=== PATIENT | male | born 1995 | race Two or more races ===

== ENCOUNTER 2021-06-27 12:49 | Observation (INO) | payer MEDICAID, OTHER ==
[~2021-06-27] VITALS: Ht 175.3 cm; Wt 76.5 kg
[2021-06-27] MEDS ORDERED: NALOXONE 1 MG/ML, 2ML ONE (13:07)
[2021-06-27] MEDS ORDERED: NALOXONE 0.4 MG/ML, 1ML ONE ×2 (13:12→14:00)
[2021-06-27] MEDS ORDERED: NALOXONE 0.4 MG/ML, 1ML IVPush ONE ×2 (13:30→14:30)
--- NOTE | 2021-06-27 13:59 | NUR ---
BIBA FOR SEVERE ONSET OF DIFFUSE ABD PAIN WITH NAUSEA AND VOMITING AFTER TAKING A "PILL" PER EMS. PT PRESENTS OBTUNDED BUT ROUSABLE. X1 DOSE OF 0.4 NARCAN WITH SLIGHT INCREASE IN ALERTNESS. JOSÉ SOW TO BEDSIDE FOR EVALUATION.
[2021-06-27] MEDS ORDERED: PLEASE ENTER ALLERGIES MC SCH (14:00)
[2021-06-27 14:02] LABS: BASOPHILS % (AUTO) 0 % (0-1); EOSINOPHILS % (AUTO) 1 % (1-7); LYMPHOCYTES % (AUTO) 12 % (22-44); MEAN CORPUSCULAR HEMOGLOBIN 30.2 pg (27.5-34.5); MEAN CORPUSCULAR HGB CONC 33.4 g/dL (33.2-36.2); MEAN PLATELET VOLUME 7.2 fL (7.4-10.4); MONOCYTES % (AUTO) 6 % (2-9); NEUTROPHILS % (AUTO) 81 % (42-75); PLATELET COUNT 272 x10^3/uL (130-400); RED CELL DISTRIBUTION WIDTH 14.1 % (9.4-14.8)
[2021-06-27 14:10] LABS: ALANINE AMINOTRANSFERASE 34 U/L (12-78); ALBUMIN 3.9 g/dL (3.4-5.0); ANION GAP 3 mmol/L (5-15); CALCIUM 8.8 mg/dL (8.5-10.1); CHLORIDE 109 mmol/L (98-107); CREATININE 0.73 mg/dL (0.7-1.3)
[2021-06-27 14:12] LABS: ALKALINE PHOSPHATASE 78 U/L (45-117); BILIRUBIN,TOTAL 0.6 mg/dL (0.2-1.0); SALICYLATE LEVEL < 1.7 mg/dL (2.8-20.0)
--- NOTE | 2021-06-27 15:00 | NUR ---
pt asleep with even and unlabored respirations. [email or web address]
[2021-06-27] MEDS ORDERED: NEOMYCIN SULFATE 500 MG TABLET PO ONE (15:42)
--- NOTE | 2021-06-27 15:42 | NUR ---
PT ASLEEP WITH EVEN AND UNLABORED RESPIRATIONS. IS BRIEFLY AROUSABLE BEFORE FALLING BACK TO SLEEP. PT UNABLE TO GIVE UA AT THIS TIME. DR. COLE NOTIFED AND STATED SHE WILL COME SEE PT.
[2021-06-27] MEDS ORDERED: LACTULOSE 20 GM/30 ML UDC PO STA (15:44)
--- NOTE | 2021-06-27 16:10 | NUR ---
YELLOW MED REQUEST SLIP SENT DOWN TO PHARM. SEE EMAR.
[2021-06-27 16:32] LABS: AMPHETAMINE SCREEN, URINE Positive (Negative); BARBITURATE SCREEN, URINE Negative (Negative); BENZODIAZEPINE SCREEN, URINE Negative (Negative); CANNABINOID SCREEN, URINE Negative (Negative); COCAINE SCREEN, URINE Positive (Negative); METHADONE SCREEN, URINE Negative (Negative); OPIATE SCREEN, URINE Negative (Negative)
[2021-06-27] MEDS ORDERED: POTASSIUM CHLORIDE 20 MEQ TAB.ER.PRT PO ONE (17:00)
--- NOTE | 2021-06-27 17:26 | NUR ---
MOTHER AT BEDSIDE. THE RN ATTEMPTED TO HAVE PT SIP WATER BEFORE MEDICATION ADMISTRATION, PT TO OBTUNDED TO DRINK. DR. COLE NOTIFED. HOLD OFF ON PO MEDICATION AT THIS TIME. VSS. CANSECO.
--- NOTE | 2021-06-27 18:43 | NUR ---
pt asleep with even and unlabored resp. [email or web address]. mother at beside.
--- NOTE | 2021-06-27 18:55 | NUR ---
BEDSIDE REPORT TO DASHAWN VICTOR.
--- NOTE | 2021-06-27 18:58 | NUR ---
report from olya brink
--- NOTE | 2021-06-27 19:30 | NUR ---
PT STARTING TO WAKE UP. PT COMPLAINING HE IS COLD AND IS ANSWERING ORIENTATION QUESTIONS. PT STATES HE BELIEVES HE CAN AMBULATE NOW. MOM AT BEDSIDE
--- NOTE | 2021-06-27 20:19 | NUR ---
PT UP FOR ROAD TEST, AMBULATES INDEPENDENTLY WITH STEADY GAIT. NO DIZZINESS. PT REPORTS HE FEELS BETTER AND WANTS TO GO HOME. MD AWARE.
--- NOTE | 2021-06-27 22:00 | NUR ---
PT RESTING IN GURNEY, RESP EVEN AND UNLABORED. MOTHER AT BEDSIDE.
--- NOTE | 2021-06-27 23:26 | NUR ---
pt resting, resp even and unlabored
[2021-06-27 23:50] VITALS: BP 120/64
--- NOTE | 2021-06-27 23:51 | NUR ---
PT AMBULATORY TO DC DESK WITH STEADY GAIT. MOTHER WITH PT TO DRIVE HOME. PT LEFT ROOM WITH ALL PERSONAL BELONGINGS. ALL QUESTIONS ANSWERED.
== END 2021-06-27 22:31 | disposition home or self-care (01) ==
LOC: ED 17:30 → INTOOBSV 17:56 → EDIP 17:56 → ED 20:33
PROVIDERS: ADMIT Emergency Medicine; ATTEND Emergency Medicine
DX: R41.82 Altered mental status, unspecified (principal); F14.10 Cocaine abuse, uncomplicated; F15.10 Other stimulant abuse, uncomplicated; E87.6 Hypokalemia; E72.20 Disorder of urea cycle metabolism, unspecified; Z79.899 Other long term (current) drug therapy
CPT/HCPCS: 36415; 70450; 71045; 80053; 80299; 80307; 80320; 80329; 82140; 85025; 93005; 96374; 96376; 99285; G0378; J2310; G0480